=== PATIENT | female | born 1965 | race Caucasian/White ===

== ENCOUNTER 2023-03-28 10:17 | Outpatient (OUT) | payer OTHER, SELFPAY ==
--- NOTE | 2023-03-28 10:22 | MM_ITS ---
Patient: DAVIDE WICK Exam Date: 03/28/2023 : 1965 Gender:F Ordering : DR Mehrdad Hubbard . Admission #: [id number] Family : Order #: [id number] CLICK HERE TO VIEW EXAM RADIOLOGY REPORT PROCEDURE: MM TOMOSYNTHESIS SCREENING BI COMPARISON: MG MAMM RICHARD SCRN W CAD DIG, 02/17/2021. MG MAMM SCREEN 3D RICHARD CAD, 03/08/2022. INDICATIONS: Screening mammogram Z12.31 Calculator Name NCI Breast Cancer Risk Assessment Tool 5 Year Breast Cancer Risk 0.80% Lifetime Breast Cancer Risk 6.00% Personal Breast Cancer No Personal Ovarian Cancer No Treatments None Family Cancers None LOCATION: [facility] BREAST COMPOSITION: Heterogeneously dense,which may obscure small masses. FINDINGS: DIAGNOSTIC CATEGORY 2--BENIGN FINDING. NO CHANGE FROM COMPARISON. Scattered benign-appearing calcifications are present. Scattered benign-appearing lymph nodes are present. RIGHT BREAST: No significant suspicious finding. Stable circumscribed nodule upper outer quadrant, anterior to mid breast. LEFT BREAST: No significant suspicious finding. RECOMMENDATIONS: ROUTINE MAMMOGRAM AND CLINICAL EVALUATION IN 12 MONTHS. PLEASE NOTE: A NORMAL MAMMOGRAM DOES NOT EXCLUDE THE POSSIBILITY OF BREAST CANCER. A CLINICALLY SUSPICIOUS PALPABLE LUMP SHOULD BE BIOPSIED. Dictated by: Justin Weinstein MD on 03/28/2023 at 13:14 Approved by: Justin Weinstein MD on 03/28/2023 at 13:15
== END 2023-03-28 10:18 | disposition home or self-care (01) ==
PROVIDERS: PCP Family Medicine; Visit Provider Family Medicine
DX: Z12.31 Encounter for screening mammogram for malignant neoplasm of breast (principal)
CPT/HCPCS: 77063; 77067

== ENCOUNTER 2023-03-31 12:31 | Outpatient (OUT) | payer OTHER, SELFPAY ==
[2023-03-31 12:57] LABS: Basophils Absolute Auto 0.1 10^3/uL (0.0-0.1); Basophils Percent Auto 0.9 % (0.2-2.0); Eosinophils Absolute Auto 0.2 10^3/uL (0.0-0.7); Eosinophils Percent Auto 2.9 % (0.9-7.0); Hematocrit 44.6 % (36.0-48.0); Hemoglobin 14.9 g/dL (12.0-16.0); Immature Granulocytes Abs Auto 0.02 10^3/uL (0.00-0.03); Immature Granulocytes Pct Auto 0.4 % (0.0-0.5); Lymphocytes Percent Auto 18.9 % (20.5-60.0); Mean Corpuscular HGB Conc 33.4 g/dL (29.9-35.2); Mean Corpuscular Hemoglobin 31.1 pg (26.7-34.0); Mean Corpuscular Volume 93.1 fL (81.0-99.0); Mean Platelet Volume 8.9 fL (9.5-13.5); Monocytes Absolute Auto 0.4 10^3/uL (0.3-0.8); Monocytes Percent Auto 7.1 % (1.7-12.0); Neutrophils Absolute Auto 3.8 10^3/uL (1.4-6.5); Neutrophils Percent Auto 69.8 % (43.0-75.0); Platelet Count 331 10^3/uL (150-450); Red Blood Count 4.79 10^6/uL (4.20-5.40); Red Cell Distribution Width 12.4 % (11.0-15.0); White Blood Count 5.5 10^3/uL (4.0-11.0)
[2023-03-31 13:29] LABS: Estimated Average Glucose 105 mg/dL; Glycohemoglobin A1C 5.3 % (4.5-6.2)
[2023-03-31 14:21] LABS: Alanine Aminotransferase 30 U/L (14-59); Albumin Globulin Ratio 1.1; Albumin Level 4.1 g/dL (3.4-5.0); Alkaline Phosphatase 108 U/L (46-116); Anion Gap 9.9; Aspartate Amino Transferase 19 U/L (15-37); BUN Creatinine Ratio 14.8; Bilirubin Total 0.4 mg/dL (0.2-1.0); Calcium 9.7 mg/dL (8.5-10.1); Carbon Dioxide 30.2 mmol/L (21.0-32.0); Chloride 105 mmol/L (98-107); Chol HDL Ratio 3.2; Cholesterol 199 mg/dL (<=200); Estimated GFR (African America >60 (>=60); Estimated GFR (Non-African Ame 53 (>=60); Free T3 3.17 pg/mL (2.18-3.98); Globulin 3.8 g/dL; Glucose 91 mg/dL (74-106); HDL Cholesterol 63 mg/dL (40-60); Potassium 4.1 mmol/L (3.5-5.1); Sodium 141 mmol/L (136-145); Thyroid Stimulating Hormone 1.264 uIU/mL (0.358-3.740); Total Protein 7.9 g/dL (6.4-8.2); Triglycerides 177 mg/dL (<=150); VLDL CHOLESTEROL 35.4 mg/dL
== END 2023-03-31 12:32 | disposition home or self-care (01) ==
LOC: LAB 12:35
PROVIDERS: PCP Family Medicine; Visit Provider Family Medicine
DX: Z00.00 Encounter for general adult medical examination without abnormal findings (principal); D64.9 Anemia, unspecified; R73.9 Hyperglycemia, unspecified
CPT/HCPCS: 36415; 80053; 80061; 83036; 83540; 84436; 84443; 84481; 85025

== ENCOUNTER 2023-04-13 09:50 | Outpatient (OUT) | payer OTHER, SELFPAY | END 2023-04-13 09:51 | disposition home or self-care (01) | LOC: SLEEP 09:50 | PROVIDERS: PCP Family Medicine; Visit Provider Family Medicine | DX: G47.33 Obstructive sleep apnea (adult) (pediatric) (principal) | CPT/HCPCS: 95806 ==

== ENCOUNTER 2023-05-11 23:47 | Outpatient (OUT) | payer OTHER, SELFPAY | END 2023-05-11 23:48 | disposition home or self-care (01) | LOC: SLEEP 23:48 | PROVIDERS: PCP Family Medicine; Visit Provider Family Medicine | DX: G47.33 Obstructive sleep apnea (adult) (pediatric) (principal) | CPT/HCPCS: 95811 ==

== ENCOUNTER 2023-05-30 13:17 | Outpatient (OUT) | payer OTHER, SELFPAY | END 2023-05-30 13:18 | disposition home or self-care (01) | LOC: PST 13:17 | PROVIDERS: PCP Family Medicine; Visit Provider Surgery | DX: Z01.818 Encounter for other preprocedural examination (principal); Z12.11 Encounter for screening for malignant neoplasm of colon ==

== ENCOUNTER 2023-06-08 09:03 | Day surgery (SDC) | payer OTHER, SELFPAY ==
--- NOTE | 2023-06-08 | OP_ITS ---
OPERATION DATE: ??06/08/2023 PREOPERATIVE DIAGNOSIS:? Colorectal screening. POSTOPERATIVE DIAGNOSIS:? 2 mm sessile polyp in the ascending colon. PROCEDURE:? Colonoscopy to cecum with cold forceps polypectomy x1. SURGEON:? Regulo Watson M.D. ANESTHESIA:? Monitored anesthesia care. ESTIMATED BLOOD LOSS:? Less than 1 mL. INDICATIONS AND CONSENT:? Patient is a 58-year-old female presents for colorectal screening.? Indications, risks, benefits, alternatives of proceeding with colonoscopy were explained extensively to the patient, including the risks of bleeding, colon perforation or anesthetic complications.? All of her questions were answered.? Informed consent was obtained. PROCEDURE:? Patient brought to the operating room, placed in the left lateral decubitus position.? Monitored anesthesia care was provided.? Rectal exam was performed which showed no masses or blood.? The scope was inserted into the anal canal.? Under direct visualization was advanced.? It was advanced to the cecum where cecal markings were clearly identified.? There was noted to be a good prep.? Upon withdrawal of the scope, mucosal surfaces were carefully examined.? There were no mass lesions or inflammatory changes.? In the ascending colon, there was a 2 mm sessile polyp that was removed with cold biopsy forceps with good hemostasis.? There were no other mass lesions or polyps.? No inflammatory changes or ulcerations.? No significant diverticulosis.? The scope was retroflexed in the anal canal.? There was no significant hemorrhoidal disease.? Scope was then withdrawn.? Patient tolerated procedure well, was sent to recovery room in good condition. f/u colonoscopy likely in 5 years, but will depend on pathology report. CC:? Ok Galeas
[2023-06-08 09:23] VITALS: BP 141/90; PULSE 72; RESP 16; TEMP 35.9; O2SAT 97; BMI 26.8
[2023-06-08] MEDS: LACTATED RINGER'S SOLUTION 1,000 ML 50 ML IV (09:31)
[2023-06-08 10:38] VITALS: BP 126/75; PULSE 75; RESP 16; TEMP 36; O2SAT 97
[2023-06-08 10:53] VITALS: BP 129/69; PULSE 64; RESP 15; O2SAT 96
[2023-06-08 11:08] VITALS: BP 141/83; PULSE 54; RESP 16; O2SAT 96
== END 2023-06-08 11:08 | disposition home or self-care (01) ==
PROVIDERS: PCP Family Medicine; Visit Provider Surgery
PROC: (CPT 45380; principal; 2023-06-08 07:55)
DX: Z12.11 Encounter for screening for malignant neoplasm of colon (principal); K63.5 Polyp of colon; E78.5 Hyperlipidemia, unspecified; Z90.710 Acquired absence of both cervix and uterus; Z79.899 Other long term (current) drug therapy; Z87.891 Personal history of nicotine dependence
CPT/HCPCS: 45380; 88305; J2704

== ENCOUNTER 2024-02-09 11:36 | Outpatient (OUT) | payer OTHER, SELFPAY ==
--- NOTE | 2024-02-09 11:51 | XR_ITS ---
[facility] [id number] Patient Name: DAVIDE WICK MRN: [id number] date: 1965 Sex: F Assigned Patient Location: LAB Current Patient Location: Accession/Order Number: [id number] Exam Date: 02/09/2024 12:00 Report Date: 02/11/2024 17:35 At the request of: MESERET HOLLIDAY Procedure: XR hand RICHARD min 3v EXAMINATION: XR hand RICHARD min 3v HISTORY: Arthralgia M25.50 COMPARISON: No relevant comparison available. FINDINGS: RIGHT FINDINGS: BONES: Normal. No significant arthropathy or acute abnormality. SOFT TISSUES: Negative. No visible soft tissue swelling. OTHER: Negative. LEFT FINDINGS: BONES: Normal. No significant arthropathy or acute abnormality. SOFT TISSUES: Negative. No visible soft tissue swelling. OTHER: Negative. XR/XR hand RICHARD min 3v IMPRESSION: RIGHT CONCLUSION: Normal LEFT CONCLUSION: Normal Electronically authenticated by: TAMMY CORBETT Date: 02/11/2024 17:35
--- NOTE | 2024-02-09 11:52 | XR_ITS ---
[facility] [id number] Patient Name: DAVIDE WICK MRN: [id number] date: 1965 Sex: F Assigned Patient Location: LAB Current Patient Location: LAB Accession/Order Number: [id number] Exam Date: 02/09/2024 12:00 Report Date: 02/12/2024 04:52 At the request of: MESERET HOLLIDAY Procedure: XR cervical spine 5V EXAMINATION: XR cervical spine 5V HISTORY: Arthralgia M25.50 ; bilateral hand pain and numbness COMPARISON: No relevant comparison available. FINDINGS: BONES: Reversal normal lordotic curvature. No fracture, spondylolisthesis, bone lesion. No significant facet arthropathy. DISC SPACES: Moderate narrowing C3-C4, C5-C6, C6-C7. Mild narrowing C4-C5. Posterior disc osteophyte complexes suspected to cause mild central canal and foramen narrowing at multiple levels. PARASPINOUS: Negative. No paraspinous abnormality is seen. OTHER: Negative. XR/XR cervical spine 5V IMPRESSION: 1. Multilevel degenerative changes of the cervical spine. MRI recommended for further evaluation. Electronically authenticated by: EVANGELISTA MEDRANO Date: 02/12/2024 04:52
[2024-02-09 12:00] LABS: Basophils Percent Auto 0.6 % (0.2-2.0); Eosinophils Absolute Auto 0.2 10^3/uL (0.0-0.7); Eosinophils Percent Auto 3.6 % (0.9-7.0); Hematocrit 40.5 % (36.0-48.0); Hemoglobin 13.5 g/dL (12.0-16.0); Immature Granulocytes Abs Auto 0.02 10^3/uL (0.00-0.03); Immature Granulocytes Pct Auto 0.3 % (0.0-0.5); Lymphocytes Absolute Auto 1.2 10^3/uL (1.2-3.8); Lymphocytes Percent Auto 18.6 % (20.5-60.0); Mean Corpuscular HGB Conc 33.3 g/dL (29.9-35.2); Mean Corpuscular Hemoglobin 31.2 pg (26.7-34.0); Mean Corpuscular Volume 93.5 fL (81.0-99.0); Mean Platelet Volume 8.9 fL (9.5-13.5); Monocytes Absolute Auto 0.6 10^3/uL (0.3-0.8); Monocytes Percent Auto 8.8 % (1.7-12.0); Neutrophils Absolute Auto 4.4 10^3/uL (1.4-6.5); Neutrophils Percent Auto 68.1 % (43.0-75.0); Platelet Count 326 10^3/uL (150-450); Red Blood Count 4.33 10^6/uL (4.20-5.40); Red Cell Distribution Width 12.5 % (11.0-15.0); White Blood Count 6.4 10^3/uL (4.0-11.0)
[2024-02-09 12:05] LABS: Erythrocyte Sedimentation Rate 7 mm/hr (<=30)
[2024-02-09 12:20] LABS: C Reactive Protein <0.50 mg/dL (<=0.50); Uric Acid 4.2 mg/dL (2.6-6.0)
[2024-02-10 06:09] LABS: Antistreptolysin O Ab 127.9 IU/mL (0.0-200.0); Rheumatoid Factor (RF) 19.1 IU/mL (<14.0)
[2024-02-13 09:11] LABS: Antinuclear Antibodies, IFA Negative (.)
== END 2024-02-09 11:37 | disposition home or self-care (01) ==
LOC: LAB 11:37
PROVIDERS: PCP Family Medicine; Visit Provider Family Medicine
DX: M25.50 Pain in unspecified joint (principal); M50.30 Other cervical disc degeneration, unspecified cervical region
CPT/HCPCS: 36415; 72050; 73130; 84550; 85025; 85652; 86038; 86060; 86140; 86431

== ENCOUNTER 2024-06-29 10:44 | Outpatient (OUT) | payer OTHER, SELFPAY ==
--- NOTE | 2024-06-29 10:46 | MM_ITS ---
Patient Name: DAVIDE WICK MR#: [id number] : 1965 Exam Date: 06/29/2024 Ordering Doctor: DR Mehrdad Hubbard . RADIOLOGY REPORT PROCEDURE: MM TOMOSYNTHESIS SCREENING BI COMPARISON: MM TOMOSYNTHESIS SCREENING BI, 03/28/2023. MG MAMM SCREEN 3D RICHARD CAD, 03/08/2022. MG MAMM RICHARD SCRN W CAD DIG, 02/17/2021. MG MAMM RICHARD SCRN W CAD DIG, 04/03/2020. INDICATIONS: Screening Calculator Name NCI Breast Cancer Risk Assessment Tool 5 Year Breast Cancer Risk 0.90% Lifetime Breast Cancer Risk 5.70% Personal Breast Cancer No Personal Ovarian Cancer No Treatments None Family Cancers None LOCATION: [facility] BREAST COMPOSITION: The breasts are heterogeneously dense,which may obscure small masses. FINDINGS: DIAGNOSTIC CATEGORY 2--BENIGN FINDING: RIGHT BREAST: No significant suspicious finding. Scattered benign-appearing calcifications are present. Stable, chronic, subareolar cyst versus well-circumscribed mass. No significant change has occurred. LEFT BREAST: No significant suspicious finding. Scattered benign-appearing calcifications are present. No significant change has occurred. RECOMMENDATIONS: ROUTINE MAMMOGRAM AND CLINICAL EVALUATION IN 12 MONTHS. PLEASE NOTE: A NORMAL MAMMOGRAM DOES NOT EXCLUDE THE POSSIBILITY OF BREAST CANCER. A CLINICALLY SUSPICIOUS PALPABLE LUMP SHOULD BE BIOPSIED. Dictated by: Inocente Bear M.D. on 06/29/2024 at 16:08 Approved by: Inocente Bear M.D. on 06/29/2024 at 16:10
== END 2024-06-29 10:45 | disposition home or self-care (01) ==
LOC: MAMMO 10:44
PROVIDERS: PCP Family Medicine; Visit Provider Family Medicine
DX: Z12.31 Encounter for screening mammogram for malignant neoplasm of breast (principal)
CPT/HCPCS: 77063; 77067

== ENCOUNTER 2025-03-25 09:38 | Outpatient (OUT) | payer OTHER, SELFPAY ==
--- OUTSIDE RECORDS SUMMARY | 2025-02-14 09:17 | XMS_ITS ---
Author Organization [facility] in [place] Address [address] [place] [address] Care Team Providers Care Pt Sitter Name Role Phone Christopher Hubbard Primary Care Provider REASON FOR VISIT refill Encounters Encounter Location Date Provider Diagnosis [facility] [address] [facility] [place] [address] 02/14/2025 Christopher Hubbard Plan Of Treatment No Information Progress Notes * Kylah KAMINSKI LDOB:1965 (59 yo F)Acc No.[id number]:02/14/2025 Patient: Todd ULPEMARGA Kylah aRe :1965 A ge:59 Y S ex:Female Address:[address] [place], [address] * true * Date: Generated for Printi ng/Faxing/eTransmitting on: 0 03/25/2025 09:41 AM EDT
--- OUTSIDE RECORDS SUMMARY | 2025-02-18 06:36 | XMS_ITS ---
Author Organization [facility] in [place] Address [address] [place] [address] Care Team Providers Care Fruit Harvest Worker Name Role Phone Christopher Hubbard Primary Care Provider REASON FOR VISIT Semaglutide Encounters Encounter Location Date Provider Diagnosis [facility] [address] [place] [address] 02/18/2025 Christopher Hubbard Plan Of Treatment No Information Progress Notes * Kylah KAMINSKI LDOB:1965 (59 yo F)Acc No.[id number]:02/18/2025 Patient: Todd LUPEMARGA Kylah Rae :1965 A ge:59 Y S ex:Female Address:[address] [place] [place], [address] * true * Date: Generated for Printi ng/Faxing/eTransmitting on: 0 03/25/2025 09:42 AM EDT
--- OUTSIDE RECORDS SUMMARY | 2025-03-25 09:42 | XMS_ITS | Clinical Summary ---
Author Organization [employer] [facility] Address [id number] [address] [place] [address] Care Team Providers Care Car Parker Name Role Phone Mehrdad Hubbard MD Primary Care Provider [phone] Allergies No known active allergies Medications ibuprofen (ADVIL,MOTRIN) 800 mg tablet Take 800 mg by mouth every 6 (six) hours as needed for pain. Active GLUTAMINE ORAL Take by mouth. Active acidophilus-pect in, citrus 25 million cell -100 mg tablet Take by mouth 3 (three) times a day with meals. Active Family History * Patient is adopted Medical History Relation Name Comments Cancer Mother lung cancer Breast cancer Neg Hx Relation Name Status Comments Mother Social History Tobacco Use Types Packs/Day Years Used Date Smoking Tobacco: Former Smokeless Tobacco: Never Alcohol Use Standard Drinks/Week Comments Yes 0 (1 standard drink = 0.6 oz pur e alcohol) socially Childcare Answer Date Recorded Childcare Unknown 03/05/2019 Employment Answer Date Recorded Employment Unknown 03/05/2019 Purpose - Life Answer Date Recorded Purpose and direction in life Unknown Comments No Sex and Gender Information Value Date Recorded Sex Assigned at Female 01/19/2022 9:33 AM EDT Legal Sex Female 11:40 AM EDT Gender Identity Female 01/19/2022 9:33 AM EDT Sexual Orientation Straight 01/19/2022 9: 33 AM EDT Last Filed Vital Signs Vital Sign Reading Time Taken Comments Blood Pressure 124/80 04/03/2020 9:19 AM EDT Pulse 70 04/03/2020 9:19 AM EDT Temperature - - Respiratory Rate 16 04/03/2020 9:19 AM EDT Oxygen Saturation - - Inhaled Oxygen Concentration - - Weight 68 kg (150 lb) 02/17/2021 11:34 AM EDT Height 162.6 cm (5' 4 ) 02/17/2021 11:34 AM EDT Body Mass Index 25.75 02/17/2021 11:34 AM EDT Plan of Treatment Health Maintenance Due Date Last Done Comments Depression Screening 1979 Tobacco Screening 1979 Adult BMI Screening 1985 DTaP,Tdap and Td Vaccines (1 - Tdap) 1986 Influenza Vaccine 06/03/2025 Zoster (Shingles) Vaccine Completed 03/09/2018, 04/2018 Pap Smear Discontinued 04/03/2020 Medical Devices Not on file Procedures Procedure Name Priority Date/Time Associated Diagnosis Comments PAP SMEAR Routine 04/03/2020 11:41 AM EDT Cervical smear, as part of routine gynecological examination from Last 3 Months or Most Recently Relevant to Health Maintenance Results * Pap Smear (04/03/2020 11:41 AM EDT) 04/03/2020 11:4 1 AM EDT 04/03/2020 12:51 PM EDT Narrative COPATH - 04/08/2020 12:38 PM EDT [facility] [address] [place] [address] Gynecologic Cytology Consultation Patient Name: DAVIDE KAMINSKI : 1965 (Age: 55) Gender: F Taken: 04/03/2020 Reported: 04/08/2020 Physician(s): Guevara Sung M.D. ([phone]) Copy To: Med. Rec. #: [id number] Acct: # [id number] Final Cytologic Interpretation ThinPrep Pap Test (Cervical): Satisfactory for evaluation. NEGATIVE FOR INTRAEPITHELIAL LESION OR MALIGNANCY. jgera/04/08/2020 Interpretation performed at [facility], [address] [place] [address], License number: [id number]. Electronically Signed Out By J.J. Wm, CT(ASCP) Date of Last Menstrual Period: (None Given) Other Clinical Conditions: Z01.419 Clarifier Operator Helper exam wo/abn findings Total Hysterectomy Source of Specimen ThinPrep Pap Test (Cervical) Thin Prep Pap (PAINTER AND PAPERHANGER APPRENTICE) Fee Code(s): G0145 The Pap test is a screening test with an inherent, but low, probability of error. The Pap test is primarily effective for the diagnosis and prevention of squamous cell carcinoma. Regular screening is critical for prevention. ThinPrep liquid-based slides, which meet the Vp & General Counsel criteria for automated screening, have been screened by the ThinPrep Imaging System (as of 06/19/07) along with an additional manual rescreening by a crop grain or livestock farm manager and, if indicated, by a pathologist. us Guevara Sung MD PATHOLOGY/CYTOLOGY ORDERABLES Final Result COPATH from Last 3 Months or Most Recently Relevant to Health Maintenance Insurance [employer] Care Teams Car Parker Relationship Specialty Start Date End Date Mehrdad Hubbard MD PCP - General Family Medicine 03/05/19
--- OUTSIDE RECORDS SUMMARY | 2025-03-25 09:42 | XMS_ITS | Patient Health Record ---
Author Organization [facility] in [place] Address [address] [place] [address] Care Team Providers Care Orchid Superintendent Name Role Phone Haydee Christopher Primary Care Provider [phone] Allergies No Known Allergies Results Component Value Reference Range Notes MM tomosynthesis screening B I Reviewed date:07/01/2024 11:09:48 AM Interpretation: Performing Lab: Notes/Report: Source Facility: [place] [address] Mammography Report Signed Patient: DAVIDE KAMINSKI MR#: [id number] : 1965 Acct:[id number] Age/Sex: 59 / F ADM Date: 06/29/24 Loc: MAMMO Attending Dr: Mehrdad Hubbard M.D. Ordering Physician: Mehrdad Hubbard M.D. Results: Date of Service: 06/29/24 Follow Up: Procedure(s): MM tomosynthesis screening BI Accession Number(s): [id number] cc: Mehrdad Hubbard M.D. Patient Name: DAVIDE KAMINSKI MR#: [id number] : 1965 Exam Date: 06/29/2024 Ordering Doctor: DR Mehrdad Hubbard . RADIOLOGY REPORT PROCEDURE: MM TOMOSYNTHESIS SCREENING BI COMPARISON: MM TOMOSYNTHESIS SCREENING BI, 03/28/2023. MG MAMM SCREEN 3D RICHARD CAD, 03/08/2022. MG MAMM RICHARD SCRN W CAD DIG, 02/17/2021. MG MAMM RICHARD SCRN W CAD DIG, 04/03/2020. INDICATIONS: Screening Calculator Name NCI Breast Cancer Risk Assessment Tool 5 Year Breast Cancer Risk 0.90% Lifetime Breast Cancer Risk 5.70% Personal Breast Cancer No Personal Ovarian Cancer No Treatments None Family Cancers None LOCATION: [facility] BREAST COMPOSITION: The breasts are heterogeneously dense,which may obscure small masses. FINDINGS: DIAGNOSTIC CATEGORY 2--BENIGN FINDING: RIGHT BREAST: No significant suspicious finding. Scattered benign-appearing calcifications are present. Stable, chronic, subareolar cyst versus well-circumscribed mass. No significant change has occurred. LEFT BREAST: No significant suspicious finding. Scattered benign-appearing calcifications are present. No significant change has occurred. RECOMMENDATIONS: ROUTINE MAMMOGRAM AND CLINICAL EVALUATION IN 12 MONTHS. PLEASE NOTE: A NORMAL MAMMOGRAM DOES NOT EXCLUDE THE POSSIBILITY OF BREAST CANCER. A CLINICALLY SUSPICIOUS PALPABLE LUMP SHOULD BE BIOPSIED. Dictated by: Inocente Bear M.D. on 06/29/2024 at 16:08 Approved by: Inocente Bear M.D. on 06/29/2024 at 16:10 Dictated By: Inocente Bear M.D. Signed By: 06/29/24 1611 DD/ 1610 TD/TT: Electronic Assembly: [place] [address] Mammography Report Signed Patient: DAVIDE KAMINSKI MR#: [id number] : 1965 Acct:[id number] Age/Sex: 59 / F ADM Date: 06/29/24 Loc: MAMMO Attending Dr: Mehrdad Hubbard M.D. Ordering Physician: Mehrdad Hubbard M.D. Results: Date of Service: Follow Up: Procedure(s): MM toni osynthesis screening BI Accession Number(s): [id number] cc: Mehrdad Hubbard M.D. Patient Name: DAVIDE KAMINSKI MR#: [id number] : 1965 Exam Date: 06/29/2024 Ordering Doctor: DR Mehrdad Hubbard . RADIOLOGY REPORT PROCEDURE: MM TOMOSY NTHESIS SCREENING BI COMPARISON: MM TOMOS YNTHESIS SCREENING BI, 03/28/2023. MG MAMM SCREEN 3D RICHARD CAD, 03/08/2022. MG MAMM RICHARD SCRN W CAD DIG, 02/17/2021. MG MAMM RICHARD SCRN W CAD DIG, 04/03/2020. INDICATIONS: Screening Calculator Name NCI Breast Cancer Risk Assessment Tool 5 Year Breast Cancer Risk 0.90% Lifetime Breast Canc er Risk 5.70% Personal Breast Cancer No Personal Ovarian Cancer No Treatments None Family Cancers None LOCATION: [facility] BREAST COMPOSITION: The breasts are heterogeneously dense,which may obscure small masses. FINDINGS: DIAGNOSTIC CATEGORY 2--BENIGN FINDING: RIGHT BREAST: No sig nificant suspicious finding. Scattered benign-appearing calcifications are p resent. Stable, chronic, subareolar cyst versus well-circumscribed m ass. No significant change has occurred. LEFT BREAST: No sign ificant suspicious finding. Scattered benign-appearing calcifications are p resent. No significant change has occurred. RECOMMENDATIONS: ROUTINE MAMMOGRAM AN D CLINICAL EVALUATION IN 12 MONTHS. PLEASE NOTE: A JUANCHO L MAMMOGRAM DOES NOT EXCLUDE THE POSSIBILITY OF BREAST CANCER. A CLINICALLY SUSPICIOUS PALPABLE LUMP SHOULD BE BIOPSIED. Dictated by: Inocente Bear M.D. on 06/29/2024 at 16:08 Approved by: Inocente Bear M.D. on 06/29/2024 at 16:10 Dictated By: Inocente eBar M.D. Signed By: 06/29/24 161 DD/ 09 TD/TT: Electronic Assembly: Reason For Referral No Information Medications Medication SIG (Take, Route, Frequency, Duration) Notes Start Date End Date Status Semaglutide 0.3 mg/0.25mL 0.3 mg/0.25 mL 0.25 mL Subcutaneous Once weekly for 30 day(s) 11/28/2024 Active Black Cohosh Menopause Complex - 700mg- 1 capsule Orally Daily Active Cetirizine HCl 10 MG 1 tablet Orally Once a day PRN Active IBU 800 MG 1 tablet with food o r milk as needed Orally QID for 30 days 03/29/2023 Active Simvastatin 20 mg TAKE 1 TABLET BY JESUS TH DAILY for 30 Active Social History Tobacco Use: Social History Observation Description Date Details (start date - stop date) Former Smoker 10/03/1976 - 10/03/2014 Tobacco Use/Smoking Question Answer Notes Patient is a former smoker When did you start smoking? 10/03/1976 When did you stop smoking? 10/03/2014 How long has it been since you last smoked? 5-10 years Alcohol Screen (Audit-C) Question Answer Notes Did you have a drink contain ing alcohol in the past year? Yes How often did you have 6 or more drinks on one occasion in the past year? Two to four times a month (2 points) How many drinks did you have on a typical day when you were drinking in the past year? 5 or 6 drinks (2 points) How often did you have a dri nk containing alcohol in the past year? Weekly (3 points) Points 7 Interpretation Positive AUDIT-C (Standard) Question Answer Notes Did you have a drink contain ing alcohol in the past year? Yes How often did you have six o r more drinks on one occasion in the past year? Never (0 point) How many drinks did you have on a typical day when you were drinking in the past year? 3 or 4 drinks (1 point) How often did you have a dri nk containing alcohol in the past year? 2 to 4 times a month (2 points) Points 3 Interpretation Positive Problems Problem Type SNOMED Code ICD Code Onset Dates Problem Status W/U Status Risk Notes Problem 59428701 Obstructive slee p apnea (adult) (pediatric) (G47.33) Active confirmed Problem Snoring (70769133) Snoring (R06.83) Active confirmed Problem 104480602 Other specified abnormal immunological findings in serum (R76.8) Active confirmed Problem Arthralgia (M25.50) Active confirmed Problem Well adult (252514726) Well adult (Z00.00) Active confirmed Vital Signs Blood pressure diastolic 80 mm Hg 11/28/2024 Height 63.5 in 11/28/2024 Blood pressure systolic 102 mm Hg 11/28/2024 Weight 170.8 lbs 11/28/2024 BMI 29.78 kg/m2 11/28/2024 Encounters Encounter Location Date Provider Diagnosis [facility] [address] [place] [address] 02/18/2025 [facility] [address] [place] [address] 07/01/2024 [facility] [address] [facility] [place] [address] 12/21/2024 Christopher Hubbard [facility] [address] [facility] [place] [address] 01/18/2025 Christopher Hubbard [facility] [address] [facility] [place] [address] 02/14/2025 Christopher Hubbard [facility] [address] [facility] [place] [address] 06/27/2024 Christopher Hubbard Well adult Z00.00 [facility] [address] [facility] [place] [address] 11/28/2024 Christopher Hubbard Acute bronchitis, unspecified organism J20.9 Assessments Encounter Date Diagnosis (ICD Code) Assessment Notes Treatment Notes Treatment Clinical Notes Section Notes 06/27/2024 Well adult (ICD-10 - Z00.00) 11/28/2024 Acute bronchitis, unspecified organism (ICD-10 - J20.9) Rest and drink more liquids, especially water. You may use a humidifier or vaporizer to help keep the drainage moist. Ufwm-amz-kdeijba Nasal Saline may help the stuffy and runny nose. Use Ibuprofen and or Tylenol as needed for fever, chills, body aches or pain. Children 5 years old should not be given bvzm-ncd-zugnekc cough and cold medications such as guaifenesin and dextromethorphan. If you're over age 5, you may try dkul-ssg-qeqiukq cold medications such as guaifenesin and dextromethorphan, or multi-symptom cold reliever such as Dayquil to help reduce the symptoms. Antibiotics have been prescribed. You should take these until completed and follow the directions. Antibiotics can sometimes cause upset stomach, and in rare cases, serious allergic reactions or serious gastrointestinal problems. If you start having severe abdominal pain, severe vomiting, or bloody diarrhea, you should be reevaluated by your physician or urgent care immediately. Follow up with your Primary Care Provider or return to clinic if symptoms do not improve within 3-5 days. If you develop severe symptoms such as shortness of breath, repeated vomiting, coughing up blood, or chest pain you should go to the emergency room or call 911 Plan Of Treatment Pending Test Test Name Order Date CMP (COMPLETE METABOLIC PANEL) 3 HEMOGLOBIN A1C (GLYCO) 03/31/2023 IRON, TOTAL 03/31/2023 LIPID PANEL (CHOL/TRIG/HDL/LDL) 03/31/20 23 CBC WITH DIFF 03/31/2023 RHEUMATOID PANEL 02/09/2024 Sleep study - Diagnostic Polysonogram SED RATE WESTERGREN 02/09/2024 XR CSPINE MIN 4 VIEWS 02/09/2024 XR HAND LT MIN 3V 02/09/2024 XR HAND RT MIN 3V 02/09/2024 THYROID PANEL (T4/TSH/FREE T3) 3 Insurance Providers Payer Name Payer Address Payer Phone Subscriber Number Group Number Insured Name Patient Relationship to Insured Coverage Start Date Coverage End Date [employer] [address] [address] [place] [address] [id number] Davide Kaminski Self - patient is the insured Medical (General) History Medical History History ICD Code Other general symptoms and signs R68.89 Arthralgia M25.50 Cervical lymphadenopathy R59.0 Acute labyrinthitis H83.09 Pyelonephritis N12 Surgical History Surgery Date(Month/Year) Partial Hysterectomy D&C Colonoscopy 06/08/2023 Tonsills & Adnoids
--- OUTSIDE RECORDS SUMMARY | 2025-03-25 09:42 | XMS_ITS | Encounter Summary ---
Author Organization [employer] [facility] Address [id number] [address] [place] [address] Care Team Providers Care Supervisor General Name Role Phone Mehrdad Hubbard MD Primary Care Provider [phone] Encounter Details Date Type Department Care Team (Late st Contact Info) Description 02/10/2021 Telephone [facility] [address] [place] [address] Laxmi Watson MA Social History Tobacco Use Types Packs/Day Years [...] Orientation Straight 01/19/2022 9: 33 AM EDT documented as of this encounter Miscellaneous Notes * Telephone Encounter - Laxmi Watson MA - 02/10/2021 4:06 PM EDT Can you please put mammogram order in system for patient. documented in this encounter Plan of Treatment Not on file documented as of this encounter Visit Diagnoses Not on filedocumented in this encounter Care Teams Supervisor General Relationship Specialty Start Date End Date Mehrdad Hubbard MD PCP - General Family Medicine 03/05/19 documented as of this encounter
--- OUTSIDE RECORDS SUMMARY | 2025-03-25 09:42 | XMS_ITS | Clinical Summary ---
Author Organization [facility] Healthcare Address [address] [place] [address] Care Team Providers Care Sheep Shearer Name Role Phone Mehrdad Hubbard MD Primary Care Provider [phone] Allergies No known active allergies Medications simvastatin (Zocor) 20 MG tablet Take 20 mg by mouth Daily 04/03/2024 Active ibuprofen 800 MG tablet Take 800 mg by mouth if needed for mild pain Active Active Problems Problem Noted Date Diagnosed Date LENA (obstructive sleep apnea) 04/28/2024 Hypersomnia 04/28/2024 Family History Relation Name Status Comments Father Unknown Mother Unknown Social History Tobacco Use Types Packs/Day Years Used Date Smoking Tobacco: Former Cigarettes 0 10/03/2013 - 10/03/1978 Smokeless Tobacco: Never Tobacco Cessation:Counseling Given: Not Answered Alcohol Use Standard Drinks/Week Comments Yes 1 (1 standard drink = 0.6 oz pur e alcohol) Comments Unknown Sex and Gender Information Value Date Recorded Sex Assigned at Not on file Legal Sex Female 9:36 PM EDT Gender Identity Not on file Sexual Orientation Not on file Last Filed Vital Signs Vital Sign Reading Time Taken Comments Blood Pressure 112/84 05/01/2024 9:55 AM EDT Pulse - - Temperature - - Respiratory Rate - - Oxygen Saturation - - Inhaled Oxygen Concentration - - Weight 75.8 kg (167 lb) 05/01/2024 9:55 AM EDT Height 162.6 cm (5' 4 ) 05/01/2024 9:55 AM EDT Body Mass Index 28.67 05/01/2024 9:55 AM EDT Plan of Treatment Health Maintenance Due Date Last Done Comments CT Colonography 1967 Colonoscopy 1967 Colorectal Cancer Screening 1967 FIT-DNA 1967 FIT 1967 FOBT 1967 Sigmoidoscopy 1967 Pap Smear 1988 Cervical Cancer Screening 1997 HPV/Cotest 1997 Mammogram 02/17/2022 02/17/2021, 07/0 11/2019, 03/29/2019 Influenza Vaccine (Season Ended) 2025 Insurance [employer] Care Teams Sheep Shearer Relationship Specialty Start Date End Date Mehrdad Hubbard MD PCP - General Family Medicine 05/01/24
--- OUTSIDE RECORDS SUMMARY | 2025-03-25 09:42 | XMS_ITS | Encounter Summary ---
Author Organization [facility] Address [id number] [address] [place] [address] Care Team Providers Care Blankbook Forwarder Name Role Phone Mehrdad Hubbard MD Primary Care Provider [phone] Encounter Details Date Type Department Care Team (Late st Contact Info) Description 02/10/2021 [facility] [address] [place] [address] Laxmi Watson MA Social History [...] Encounter - Laxmi Watson MA - 02/10/2021 4:09 PM EDT Patient wanted to be seen sooner for her annual than a year. Patient was just seen in April. I let patient know insurance's will usually deny if it hasn't been a year, patient stated she called insurance and they told her if would be fine. Advised to keep her appt in April and if any issues arise we will bring her in for appt . She denied any current issues at this time. documented in this encounter Plan of Treatment Not on file documented as of this encounter Visit Diagnoses Not on filedocumented in this encounter Care Teams Blankbook Forwarder Relationship Specialty Start Date End Date Mehrdad Hubbard MD PCP - General Family Medicine 03/05/19 documented as of this encounter
--- NOTE | 2025-03-25 09:49 | MM_ITS ---
Patient Name: DAVIDE WICK MR#: [id number] : 1965 Exam Date: 03/25/2025 Ordering Doctor: DR MESERET HOLLIDAY . RADIOLOGY REPORT PROCEDURE: MM TOMOSYNTHESIS SCREENING BI COMPARISON: MM TOMOSYNTHESIS SCREENING BI, 06/29/2024. MM TOMOSYNTHESIS SCREENING BI, 03/28/2023. MG MAMM SCREEN 3D RICHARD CAD, 03/08/2022. MG MAMM RICHADR SCRN W CAD DIG, 03/30/2012. INDICATIONS: Screening Calculator Name NCI Breast Cancer Risk Assessment Tool 5 Year Breast Cancer Risk 0.90% Lifetime Breast Cancer Risk 5.70% Personal Breast Cancer No Personal Ovarian Cancer No Treatments None Family Cancers None LOCATION: [facility] BREAST COMPOSITION: The breasts are heterogeneously dense,which may obscure small masses. FINDINGS: DIAGNOSTIC CATEGORY 1--NEGATIVE. RIGHT BREAST: No significant suspicious finding. LEFT BREAST: No significant suspicious finding. RECOMMENDATIONS: ROUTINE MAMMOGRAM AND CLINICAL EVALUATION IN 12 MONTHS. PLEASE NOTE: A NORMAL MAMMOGRAM DOES NOT EXCLUDE THE POSSIBILITY OF BREAST CANCER. A CLINICALLY SUSPICIOUS PALPABLE LUMP SHOULD BE BIOPSIED. Dictated by: Nabeel Salter DO on 03/25/2025 at 16:33 Approved by: Nabeel Salter DO on 03/25/2025 at 16:35
--- OUTSIDE RECORDS SUMMARY | 2025-03-25 10:01 | XMS_ITS | CCD ---
Author Organization [facility] Care Team Providers Care Build And Deployment Engineer Name Role Phone MIYA, DR CARL Consulting Unavailable MIYA, DR CARL Primary Care Unavailable MIYA, DR CARL Admitting Unavailable MIYA, DR CARL Attending Unavailable WEST, DR TAMMY Sloan Consulting Unavailable MIYA, DR CARL Consulting Unavailable MIAY, DR CARL Primary Care Unavailable MIYA, DR CARL Admitting Unavailable MIYA, DR CARL Attending Unavailable MIYA, DR CARL Consulting Unavailable MIYA, DR CARL Primary Care Unavailable MIYA, DR CARL Admitting Unavailable MIYA, DR CARL Attending Unavailable Meseret Hubbard Primary Care Physician Meseret Hubbard Referring Unavailable Regulo COELHO Attending Unavailable NILLRegulo Attending Unavailable NILRegulo Rae Attending Unavailable HANS TORREZ Attending Unavailable GENEVA SEALS Referring Unavailable Allergies Allergy Classification Reported Allergen(s) Allergy Type Date of Onset Reaction(s) Facility (1 source) No Known Medication Allergies; Translations: [No Known Medication Allergies] Propensity to adverse reactions (disorder) [facility] Repository Medications Current Medications Medication Drug Class(es) Dates Sig (Normalized) Sig (Original) Acidophilus Probiotic Blend (2 sources) Start: 05-17-2023 take 1 capsule by mouth once daily Acidophilus Probiotic Blend 1 cap(s), Oral, Daily, Refill(s) 0 Start Date: 05/17/23 Status: Ordered simvastatin 20 mg oral tablet (2 sources) HMG-CoA Reductase Inhibitor Start: 04-07-2023 take 1 tablet by mouth once daily in the evening simvastatin 20 mg Tab 20 mg = 1 tab(s), Oral, qPM, Refills(s) 0 Start Date: 04/07/23 Status: Ordered Problems Active Problems Problem Classification Problem Date Documented Da te Episodic/Chronic Disorders of lipid metabolism (6 sources) Hyperlipidemia, unspecified; Translations: [Hyperlipidemia] Onset: 05-19-2021 Chronic Other nutritional; endocrine; and metabolic disorders (2 sources) Overweight 04-07-2023 Episodic Other nutritional; endocrine; and metabolic disorders (2 sources) Overweight in adulthood with body mass index of 25 or more but less than 30 05-17-2023 Episodic Other screening for suspected conditions (not mental disorders or infectious disease) (3 sources) Encounter for screening mammogram for malignant neoplasm of breast; Translations: [Screening for malignant neoplasm of colon done] Onset: 03-12-2022 Episodic Unclassified (3 sources) CONTACT W/AND (SUSP) EXPOS COVID-19; Translations: [CONTACT W/AND (SUSP) EXPOS COVID-19] Onset: 06-07-2021 Unclassified (2 sources) Patient encounter status 05-17-2023 Past or Other Problems Problem Classification Problem Date Documented Da te Episodic/Chronic Unclassified (1 source) CONTACT W/AND (SUSP) EXPOS COVID-19; Translations: [CONTACT W/AND (SUSP) EXPOS COVID-19] Onset: 05-27-2021 Results Test Name Value Interpretation Reference Range Facility Ambulatory Visit Summaryon 0 06-21-2023 Ambulatory Visit Summary DAVIDE WICK :1965 Visit Date:06/21/2023 Ambulatory Visit Instructions Your Diagnosis Screening for malignant neoplasm of colon Your Care Team Attending Physician - LAQUITA MILLER, Regulo Moreland Primary Care Physician - Meseret Hubbard MD This Is Your Medications List lactobacillus acidophilus (Acidophilus Probiotic Blend) simvastatin (simvastatin 20 mg Tab) Procedures Performed Colonoscopy (06/08/2023), Dilation and curettage, Repair of right inguinal hernia, Tonsillectomy and adenoidectomy, Vaginal hysterectomy. Medications What How Much When Instructions Unchanged lactobacillus acidophilus (Acidophilus Probiotic Blend) 1 Capsules By Mouth Every day Unchanged simvastatin (simvastatin 20 mg Tab) 1 Tablets By Mouth Once a day (in the evening) Allergies No Known Allergies No Known Medication Allergies Problems Ongoing - Any problem that you are currently receiving treatment for. BMI 27.0-27.9,adult Hyperlipidemia Overweight Screening for malignant neoplasm of colon Amol Allred [facility] General Surgery Office/Clini c Noteon 06-21-2023 General Surgery Office/Clinic Note Chief Complaint colonoscopy follow up HPI Staff 13 day post operative follow up post colonoscopy with ascending colon polypectomy. History of Present Illness s/p colonoscopy with removal of 2 mm ascending colon polyp; pathology just with lymphoid tissue, no polyp; doing well, denies pain or blood in stools. Review of Systems ROS - Provider Constitutional: no fever, no sweats, no weight loss. Eyes: no glasses, no blurred vision, no visual loss. ENMT: no dentures, no hoarseness, no swallowing difficulties, no hearing loss, no ear infection(s), no nose bleeds. Cardiovascular: normal blood pressure, no chest pain, regular heartbeat, no heart murmur. Respiratory: no shortness of breath, no cough, no asthma, no wheezing. Gastrointestinal: no nausea, no vomiting, no diarrhea, no constipation, no blood in stool, no change in bowel habits, no abdominal pain, no hepatitis. Genitourinary: no kidney stones, no urine infection, no dysuria. Musculoskeletal: no pain, no weakness. Skin: no changing moles, no rash, no skin lumps. Neurologic: no seizures, no epilepsy, no headache. Psychiatric: no emotional or psychiatric problem. Heme/Lymph: no bleeding problems, no anemia, no blood clots, no transfusions. Allergy/Immunologic: no swollen lymph nodes/glands, no IV drug abuse. Other: Additional ROS info: Except as noted in the above Review of Systems and in the History of Present Illness, all other systems have been reviewed and are negative or noncontributory. Assessment/Plan 1. Screening for malignant neoplasm of colon (Z12.11: Encounter for screening for malignant neoplasm of colon) small 2 mm polypoid area removed, not true polyp, only lymphoid tissue; f/u screening colonoscopy in 10 years, call sooner if problems/questions. Follow-up No qualifying data available Problem List/Past Medical History Ongoing BMI 27.0-27.9,adult Hyperlipidemia Overweight Screening for malignant neoplasm of colon Historical No qualifying data Procedure/Surgical History Colonoscopy (06/08/2023), Dilation and curettage, Repair of right inguinal hernia, Tonsillectomy and adenoidectomy, Vaginal hysterectomy. Medications Acidophilus Probiotic Blend, 1 cap(s), Oral, Daily simvastatin 20 mg Tab, 20 mg= 1 tab(s), Oral, qPM Allergies No Known Allergies No Known Medication Allergies Social History Alcohol Current, Beer, 1-2 times per week, 05/17/2023 Substance Abuse - Denies Substance Abuse, 05/17/2023 Tobacco Former smoker, quit more than 30 days ago Tobacco Use:. Never Smokeless Tobacco Use:. Cigarettes, 0.25 per day. Started age 22.0 Years. Stopped age 48 Years., 05/17/2023 Family History Primary malignant neoplasm of lung: Mother. Immunizations Vaccine Date Status SARSCoV2 mRNA(tosandyer-jessika- sucros) vac 11/13/2021 Recorded SARS-CoV-2 (COVID-19) mRNA BNT-162b2 vax 05/29/2021 Recorded SARS-CoV-2 (COVID-19) mRNA BNT-162b2 vax 05/12/2021 Recorded Normal [facility] Comment on above: Result Comment: Elec tronically Signed By: LAQUITA MILLER, Regulo Devries\Date and Time Signed: 06/21/23 13:12 EDT Reminderson 06-21-2023 Reminders - From: Rebekah Sandoval LPN To: GSN - Clinical; Sent: 06/21/2023 13:06:19 EDT Show up: 05/08/2033 07:00:00 EDT Subject: colonoscopy recall Due Date/Time: 06/08/2033 07:00:00 EDT Reminder/Recall Patient due for screening colonoscopy 06/08/2033. Normal [facility] Pathology Noteon 06-13-2023 Pathology Note [id number]# 1.00CD:127 Normal [facility] Outside Colonoscopyon 2022 Outside Colonoscopy [id number]# 1.00CD:127 [facility] Insurance Correspondenceon 0 05-30-2023 Insurance Correspondence [id number] 2#1.00CD:127 [facility] Consent for Procedure/Surger yon 05-18-2023 Consent for Procedure/Surgery [id number] #1.00CD:127 [facility] Ambulatory Visit Summaryon 0 05-17-2023 Ambulatory Visit Summary DAVIDE WICK :1965 Visit Date:05/17/2023 Ambulatory Visit Instructions Your Diagnosis Screening for malignant neoplasm of colon Your Care Team Attending Physician - LAQUITA MILLER, Regulo Moreland Primary Care Physician - Meseret Hubbard MD This Is Your Medications List Contact prescribing physician if questions or concerns lactobacillus acidophilus (Acidophilus Probiotic Blend) simvastatin (simvastatin 20 mg Tab) Procedures Performed Dilation and curettage, Repair of right inguinal hernia, Tonsillectomy and adenoidectomy, Vaginal hysterectomy. Discharge Vitals Heart Rate (Peripheral) 72 Respiratory Rate 16 Blood Pressure 126/86 Height 162.5 cm Height 64 in Weight 73.5 kg Weight 161.7 lb BMI 27.83 Medications What How Much When Instructions Unchanged lactobacillus acidophilus (Acidophilus Probiotic Blend) 1 Capsules By Mouth Every day Contact prescribing physician if questions or concerns Unchanged simvastatin (simvastatin 20 mg Tab) 1 Tablets By Mouth Once a day (in the evening) Contact prescribing physician if questions or concerns Allergies No Known Allergies No Known Medication Allergies Problems Ongoing - Any problem that you are currently receiving treatment for. BMI 27.0-27.9,adult Hyperlipidemia Overweight Screening for malignant neoplasm of colon [facility] Ambulatory Visit Summary DAVIDE WICK :1965 Visit Date:05/17/2023 Ambulatory Visit Instructions Your Diagnosis Screening for malignant neoplasm of colon Your Care Team Attending Physician - LAQUITA MILLER, Regulo Moreland Primary Care Physician - Meseret Hubbard MD This Is Your Medications List lactobacillus acidophilus (Acidophilus Probiotic Blend) simvastatin (simvastatin 20 mg Tab) Procedures Performed Dilation and curettage, Repair of right inguinal hernia, Tonsillectomy and adenoidectomy, Vaginal hysterectomy. Discharge Vitals Heart Rate (Peripheral) 72 Respiratory Rate 16 Blood Pressure 126/86 Height 162.5 cm Height 64 in Weight 73.5 kg Weight 161.7 lb BMI 27.83 Medications What How Much When Instructions Unchanged lactobacillus acidophilus (Acidophilus Probiotic Blend) 1 Capsules By Mouth Every day Unchanged simvastatin (simvastatin 20 mg Tab) 1 Tablets By Mouth Once a day (in the evening) Allergies No Known Allergies No Known Medication Allergies Problems Ongoing - Any problem that you are currently receiving treatment for. BMI 27.0-27.9,adult Hyperlipidemia Overweight Screening for malignant neoplasm of colon Normal [facility] Facesheeton 05-17-2023 Facesheet [id number]#1.00CD:127 Normal [facility] Physician Referralon 023 Physician Referral [id number] #1.00CD:127 Normal [facility] Physician Referralon 023 Physician Referral [id number] #1.00CD:127 Normal [facility] T4 LABCORPon 03-09-2022 T4 [Mass/Vol] 5.7 ug/dL Normal 4.5-12.0 [facility] Comment on above: Performed By: #### T 4LC #### [facility] [address] [place] [address] Dr. Montserrat Payne CBC AUTO DIFFon 03-08-2022 BASO # 0.0 103/ul Normal 0.0-0.1 [facility] Comment on above: Performed By: #### C BC #### [facility] [address] [place] [address] Dr. Montserrat Payne Basophils/100 WBC (Bld) 0.6 % Normal 0.2-2.0 [facility] Comment on above: Performed By: #### C BC #### [facility] [address] [place] [address] Dr. Montserrat Payne EO # 0.2 103/ul Normal 0.0-0.7 [facility] Comment on above: Performed By: #### C BC #### [facility] [address] [place] [address] Dr. Montserrat Payne Eosinophils/100 WBC (Bld) 4.6 % Normal 0.9-7.0 [facility] Comment on above: Performed By: #### C BC #### [facility] [address] [place] [address] Dr. Montserrat Payne Erythrocyte distribution width (RBC) [Ratio] 12.4 % Normal 11.0-15.0 [facility] Comment on above: Performed By: #### C BC #### [facility] [address] [place] [address] Dr. Montserrat Payne Hematocrit (Bld) [Volume fraction] 41.0 % Normal 36.0-48.0 [facility] Comment on above: Performed By: #### C BC #### [facility] [address] [place] [address] Dr. Montserrat Payne Hemoglobin (Bld) [Mass/Vol] 13.8 g/dL Normal 12.0-16.0 [facility] Comment on above: Performed By: #### C BC #### [facility] [address] [place] [address] Dr. Montserrat Payne IG # 0.02 10e3/ul Normal 0.00-0.03 [facility] Comment on above: Performed By: #### C BC #### [facility] [address] [place] [address] Dr. Montserrat Payne IG % 0.4 % Normal 0.0-0.5 [facility] Comment on above: Performed By: #### C BC #### [facility] [address] [place] [address] Dr. Montserrat Payne LYMPH # 1.2 103/ul Normal 1.2-3.8 [facility] Comment on above: Performed By: #### C BC #### [facility] [address] [place] [address] Dr. Montserrat Payne Lymphocytes/100 WBC (Bld) 23.4 % Normal 20.5-60.0 [facility] Comment on above: Performed By: #### C BC #### [facility] [address] [place] [address] Dr. Montserrat Payne MANUAL DIFF REQ NO Normal [facility] Comment on above: Performed By: #### C BC #### [facility] [address] [place] [address] Dr. Montserrat Payne MCH (RBC) [Entitic mass] 31.8 pg Normal 26.7-34.0 [facility] Comment on above: Performed By: #### C BC #### [facility] [address] [place] [address] Dr. Montserrat Payne MCHC (RBC) [Mass/Vol] 33.7 g/dL Normal 29.9-35.2 [facility] Comment on above: Performed By: #### C BC #### [facility] [address] [place] [address] Dr. Montserrat Payne MCV (RBC) [Entitic vol] 94.5 fL Normal 81.0-99.0 [facility] Comment on above: Performed By: #### C BC #### [facility] [address] [place] [address] Dr. Montserrat Payne MONO # 0.5 103/ul Normal 0.3-0.8 [facility] Comment on above: Performed By: #### C BC #### [facility] [address] [place] [address] Dr. Montserrat Payne Monocytes/100 WBC (Bld) 9.4 % Normal 1.7-12.0 [facility] Comment on above: Performed By: #### C BC #### [facility] [address] [place] [address] Dr. Montserrat Payne NEUT # 3.1 103/ul Normal 1.4-6.5 [facility] Comment on above: Performed By: #### C BC #### [facility] [address] [place] [address] Dr. Montserrat Payne Neutrophils/100 WBC (Bld) 61.6 % Normal 43.0-75.0 [facility] Comment on above: Performed By: #### C BC #### [facility] [address] [place] [address] Dr. Montserrat Payne Platelet mean volume (Bld) [Entitic vol] 8.9 fL Critically low 9.5-13.5 [facility] Comment on above: Performed By: #### C BC #### [facility] [address] [place] [address] Dr. Montserrat Payne PLT 284 103/ul Normal 150-450 [facility] Comment on above: Performed By: #### C BC #### [facility] [address] [address] [address] Montserrat Payne RBC 4.34 106/ul Normal 4.20-5.40 [facility] Comment on above: Performed By: #### C BC #### [facility] [address] [address] [address] Montserrat Payne WBC 5.0 103/ul Normal 4.0-11.0 [facility] Comment on above: Performed By: #### C BC #### [facility] [address] [address] [address] Montserrat Payne FREE THYROXINE INDEX T7on FTI 1.94 Normal 1.30-4.50 [facility] Comment on above: Performed By: #### T 7, CMP, LIPID, TSH ####[facility] [id number] [address]Dr. Montserrat Payne T3U 34.0 % Normal 30.0-39.0 [facility] Comment on above: Performed By: #### T 7, CMP, LIPID, TSH ####[facility] [id number] [id number]. Montserrat Payne T4 [Mass/Vol] 5.70 ug/dL Normal 4.80-13.90 [facility] Comment on above: Result Comment: T4 t esting performed by [facility] Performed By: #### T 7, CMP, LIPID, TSH ####[facility] [id number] [place] [id number]. Montserrat Payne GLYCOHEMOGLOBIN A1Con 2021 ADA RECOMMENDATION SEE BELOW Normal [facility] Comment on above: Result Comment: ADA RECOMMENDED LIMIT 4.0 - 6.0 ADA THERAPEUTIC TARGET < 7.0 ACTION SUGGESTED > 7.0 Performed By: #### A 1C #### [facility] [address] [address] [address] Montserrat Payne Glucose [Mass/Vol] 97 mg/dL Normal [facility] Comment on above: Performed By: #### A 1C #### [facility] [address] [place], [place] [address] Dr. Montserrat Payne HbA1c (Bld) [Mass fraction] 5.0 % Normal 4.5-6.2 [facility] Comment on above: Performed By: #### A 1C #### [facility] [address] [place], [place] [address] Dr. Montserrat Payne IRONon 03-08-2022 Iron [Mass/Vol] 96.0 ug/dL Normal 50.0-170.0 [facility] Comment on above: Performed By: #### I DEWAYNE #### [facility] [address] [address] [address] Montserrat Payne LIPID PROFILEon 03-08-2022 CHOL-HDL RATIO NORM SEE BELOW Normal [facility] Comment on above: Result Comment: 3.3 - 4.4 LOW RISK 4.4 - 7.1 AVERAGE RISK 7.1 - 11.0 MODERATE RISK >11.0 HIGH RISK Performed By: #### T 7, CMP, LIPID, TSH ####[facility] [id number] [place] [id number]. Montserrat Payne Cholesterol [Mass/Vol] 212 mg/dL Critically high <=200 [facility] Comment on above: Performed By: #### T 7, CMP, LIPID, TSH ####[facility] [id number] [id number]. Montserrat Payne Cholesterol in HDL [Mass/Vol] 61 mg/dL Critically high 40-60 [facility] Comment on above: Performed By: #### T 7, CMP, LIPID, TSH ####[facility] [id number] [place] [phone]. Montserrat Payne Cholesterol in LDL [Mass/Vol] 113.6 mg/dL Normal [facility] Comment on above: Performed By: #### T 7, CMP, LIPID, TSH ####[facility] [id number] [place] [phone]. Montserrat Payne Cholesterol.total/Chol esterol in HDL [Mass ratio] 3.5 {ratio} Normal [facility] Comment on above: Performed By: #### T 7, CMP, LIPID, TSH ####[facility] [id number] [place] [phone]. Montserrat Payne HDL NORMAL > or = 60 mg/dl - LOW CARDIOVASCULAR RISK <40 mg/dl - HIGH CARDIOVASCULAR RISK Normal [facility] Comment on above: Performed By: #### T 7, CMP, LIPID, TSH ####[facility] [id number] [address]Dr. Montserrat Payne LDL CALC NORMAL SEE BELOW Normal [facility] Comment on above: Result Comment: <100 mg/dl OPTIMAL 100 - 129 mg/dl NEAR OR ABOVE OPTIMAL 130 - 159 mg/dl BORDERLINE HIGH 160 - 189 mg/dl HIGH >190 mg/dl VERY HIGH Performed By: #### T 7, CMP, LIPID, TSH ####[facility] [id number] [address]Dr. Montserrat Payne Triglyceride [Mass/Vol] 187 mg/dL Critically high <=150 [facility] Comment on above: Performed By: #### T 7, CMP, LIPID, TSH ####[facility] [id number] [phone]. Montserrat Payne VLDL CALC 37.4 mg/dL Normal [facility] Comment on above: Performed By: #### T 7, CMP, LIPID, TSH ####[facility] [id number] [address]Dr. Montserrat Payne MG MAMM SCREEN 3D RICHARD CADon 03-08-2022 MG MAMM SCREEN 3D RICHARD CAD Patient: DAVIDE WICK Exam Date: 03/08/2022 : 1965 Gender:F Ordering : DR MESERET HUBBARD . Admission #: [id number] Family : Order #: [id number] CLICK HERE TO VIEW EXAM RADIOLOGY REPORT PROCEDURE: MAMMOGRAM SCREENING 3D BILATERAL CAD COMPARISON: MG MAMM RICHARD SCRN W CAD DIG, 04/03/2020. MG MAMM RICHARD SCRN W CAD DIG, 02/17/2021. INDICATIONS: Screening mammography Calculator Name NCI Breast Cancer Risk Assessment Tool 5 Year Breast Cancer Risk 0.80% Lifetime Breast Cancer Risk 6.10% Personal Breast Cancer No Personal Ovarian Cancer No Treatments None Family Cancers None LOCATION: [facility] BREAST COMPOSITION: Heterogeneously dense,which may obscure small masses. FINDINGS: DIAGNOSTIC CATEGORY 2--BENIGN FINDING. NO CHANGE FROM COMPARISON. Scattered benign-appearing calcifications are present. Scattered benign-appearing lymph nodes are present. RIGHT BREAST: No significant suspicious finding. Stable retroareolar nodule, anterior/mid breast LEFT BREAST: No significant suspicious finding. RECOMMENDATIONS: ROUTINE MAMMOGRAM AND CLINICAL EVALUATION IN 12 MONTHS. PLEASE NOTE: A NORMAL MAMMOGRAM DOES NOT EXCLUDE THE POSSIBILITY OF BREAST CANCER. A CLINICALLY SUSPICIOUS PALPABLE LUMP SHOULD BE BIOPSIED. Dictated by: Tammy Weinstein MD on 03/08/2022 at 10:53 Approved by: Tammy Weinstein MD on 03/08/2022 at 10:54 Normal [facility] PROF 14(COMP METB)on 022 Albumin [Mass/Vol] 3.7 g/dL Normal 3.4-5.0 [facility] Comment on above: Performed By: #### T 7, CMP, LIPID, TSH #### [facility] [address] [place] [address] Dr. Montserrat Payne Albumin/Globulin [Mass ratio] 1.2 {ratio} Normal [facility] Comment on above: Performed By: #### T 7, CMP, LIPID, TSH #### [facility] [address] [place] [address] Dr. Montserrat Payne ALP [Catalytic activity/Vol] 85 U/L Normal 46-116 [facility] Comment on above: Performed By: #### T 7, CMP, LIPID, TSH #### [facility] [address] [address] [address] Montserrat Payne ALT [Catalytic activity/Vol] 29 U/L Normal 14-59 [facility] Comment on above: Performed By: #### T 7, CMP, LIPID, TSH #### [facility] [address] [place] [address] Dr. Montserrat Payne Anion gap [Moles/Vol] 13.3 mmol/L Normal [facility] Comment on above: Performed By: #### T 7, CMP, LIPID, TSH #### [facility] [address] [place] [address] Dr. Montserrat Payne AST [Catalytic activity/Vol] 20 U/L Normal 15-37 [facility] Comment on above: Performed By: #### T 7, CMP, LIPID, TSH #### [facility] [address] [address] [address] Montserrat Payne Bilirubin [Mass/Vol] 0.3 mg/dL Normal 0.2-1.0 [facility] Comment on above: Performed By: #### T 7, CMP, LIPID, TSH #### [facility] [address] [address] [address] Montserrat Payne Calcium [Mass/Vol] 9.0 mg/dL Normal 8.5-10.1 [facility] Comment on above: Performed By: #### T 7, CMP, LIPID, TSH #### [facility] [address] [address] [address] Montserrat Payne Chloride [Moles/Vol] 106 mmol/L Normal 98-107 [facility] Comment on above: Performed By: #### T 7, CMP, LIPID, TSH #### [facility] [address] [address] [address] Montserrat Payne CO2 [Moles/Vol] 25.7 mmol/L Normal 21.0-32.0 [facility] Comment on above: Performed By: #### T 7, CMP, LIPID, TSH #### [facility] [address] [address] [address] Montserrat Payne Creatinine [Mass/Vol] 1.07 mg/dL Critically high 0.55-1.02 [facility] Comment on above: Performed By: #### T 7, CMP, LIPID, TSH #### [facility] [address] [address] [address] Montserrat Payne EGFR-AF KAZAKH >60 Normal >=60 [facility] Comment on above: Performed By: #### T 7, CMP, LIPID, TSH #### [facility] [address] [address] [address] Montserrat Payne EGFR-NON AF KAZAKH 53 mL/min/1.73m2 Critically low >=60 [facility] Comment on above: Performed By: #### T 7, CMP, LIPID, TSH #### [facility] [address] [address] [address] Montserrat Payne Globulin (S) [Mass/Vol] 3.2 g/dL Normal [facility] Comment on above: Performed By: #### T 7, CMP, LIPID, TSH #### [facility] [address] [address] [address] Montserrat Payne Glucose [Mass/Vol] 86 mg/dL Normal 74-106 [facility] Comment on above: Performed By: #### T 7, CMP, LIPID, TSH #### [facility] [address] [address] [address] Montserrat Payne Potassium [Moles/Vol] 4.0 mmol/L Normal 3.5-5.1 [facility] Comment on above: Performed By: #### T 7, CMP, LIPID, TSH #### [facility] [address] [address] [address] Montserrat Payne Protein [Mass/Vol] 6.9 g/dL Normal 6.4-8.2 [facility] Comment on above: Performed By: #### T 7, CMP, LIPID, TSH #### [facility] [address] [address] [address] Montserrat Payne Sodium [Moles/Vol] 141 mmol/L Normal 136-145 [facility] Comment on above: Performed By: #### T 7, CMP, LIPID, TSH #### [facility] [address] [address] [address] Montserrat Payne Urea nitrogen [Mass/Vol] 13.0 mg/dL Normal 7.0-18.0 [facility] Comment on above: Performed By: #### T 7, CMP, LIPID, TSH #### [facility] [address] [place] [address] Dr. Montserrat Payne Urea nitrogen/Creatinine [Mass ratio] 12.1 mg/mg Normal [facility] Comment on above: Performed By: #### T 7, CMP, LIPID, TSH #### [facility] [address] [address] [address] Montserrat Payne TSHon 03-08-2022 TSH 2.004 uIU/mL Normal 0.358-3.740 [facility] Comment on above: Performed By: #### T 7, CMP, LIPID, TSH ####[facility] [id number] [place], [place] [address]SyDonald Payne TSH RANGE SEE BELOW Normal [facility] Comment on above: Result Comment: <0.3 4 UIU/ml HYPERTHYROID 0.34-5.60 UIU/ml EUTHYROID >5.60 UIU/ml HYPOTHYROID Performed By: #### T 7, CMP, LIPID, TSH ####[facility] [id number] [id number][address] Montserrat Payne Covid-19 PCR (CVDTB)on 05-04 SARS-CoV-2 (COVID-19) RNA GLORIA+probe Ql (Unsp spec) Not detected Normal NOT DETECTED [facility] Comment on above: Result Comment: This test is not yet approved or cleared by the [place] FDA. When there are no FDA-approved or cleared tests available, and other criteria are met, FDA can make tests available under an emergency access mechanism called an Emergency Use Authorization (EUA). The EUA for this test is supported by the [place] of Health and Human Service's (HHS's) declaration that circumstances exist to justify the emergency use of in vitro diagnostics for the detection and/or diagnosis of the virus that causes COVID-19. This EUA will remain in effect (meaning this test can be used) for the duration of the COVID-19 declaration justifying emergency of IVDs, unless it is terminated or revoked by FDA (after which the test may no longer be used). When diagnostic testing is negative, the possibility of a false negative should be considered in the context of a patient's recent exposures and the presence of clinical signs and symptoms consistent with SARS-CoV-2. Performed By: #### C VDTBH, CVDAGS #### [facility] [address] [place], [place] [address] Dari Pagan SYMPTOMATIC COVID-19 ANTIGEN on 05-27-2021 EUA Statement SEE BELOW Normal [facility] Comment on above: Result Comment: This test has not been FDA cleared or approved, but has been authorized by the FDA under an Emergency Use Authorization (EUA) for use by authorized laboratories certified under CLIA that meet the requirements to perform moderate or high complexity testing. This test has been authorized only for the detection of proteins from SARS-CoV-2, not for any other viruses or pathogens. The emergency use of this test is authorized for the duration of the declaration that circumstances exist justifying the authorization of emergency use of in vitro diagnostic tests for detection and/or diagnosis of Covid-19 under section 564(b)(1) of the Act, 21 U.S.C. 360bbb-3(b)(1), unless the declaration is terminated or authorization is revoked sooner. Performed By: #### C SAMUEL, CVDAGS #### [facility] [address] [place] [address] Dari Pagan SARS-CoV-2 (COVID-19) RNA GLORIA+probe Ql (Unsp spec) Negative Normal NEGATIVE [facility] Comment on above: Result Comment: CONF IRMATION BY PCR PENDING PER CDC GUIDELINES/ SYMPTOMATIC PATIENT. Performed By: #### C SAMUEL, CVDAGS #### [facility] [address] [place] [address] Dari Pagan LIPID PROFILEon 05-19-2021 CHOL-HDL RATIO NORM SEE BELOW Normal [facility] Comment on above: Result Comment: 3.3 - 4.4 LOW RISK 4.4 - 7.1 AVERAGE RISK 7.1 - 11.0 MODERATE RISK >11.0 HIGH RISK Performed By: #### L JOHANNY, LIPID #### [facility] [address] [place] [address] Dari Pagan Cholesterol [Mass/Vol] 170 mg/dL Normal <=200 [facility] Comment on above: Performed By: #### L JOHANNY, LIPID #### [facility] [address] [place], [place] [id number] Dari Pagan Cholesterol in HDL [Mass/Vol] 61 mg/dL Normal [facility] Comment on above: Performed By: #### L JOHANNY, LIPID #### [facility] [address] [place], [place] [address] Dari Latasha Cholesterol in LDL [Mass/Vol] 69.2 mg/dL Normal [facility] Comment on above: Performed By: #### L IVKLEVER, LIPID #### [facility] [address] [place], [place] [address] Dari Latasha Cholesterol.total/Chol esterol in HDL [Mass ratio] 2.8 {ratio} Normal [facility] Comment on above: Performed By: #### L IVKLEVER, LIPID #### [facility] [address] [place], [place] [address] Dari Latasha HDL NORMAL > or = 60 mg/dl - LOW CARDIOVASCULAR RISK <40 mg/dl - HIGH CARDIOVASCULAR RISK Normal [facility] Comment on above: Performed By: #### L JOHANNY, LIPID #### [facility] [address] [place], [place] [address] Dari Latasha LDL CALC NORMAL SEE BELOW Normal [facility] Comment on above: Result Comment: <100 mg/dl OPTIMAL 100 - 129 mg/dl NEAR OR ABOVE OPTIMAL 130 - 159 mg/dl BORDERLINE HIGH 160 - 189 mg/dl HIGH >190 mg/dl VERY HIGH Performed By: #### L JOHANNY, LIPID #### [facility] [address] [place] [address] Dari Latasha Triglyceride [Mass/Vol] 199 mg/dL Critically high <=150 [facility] Comment on above: Performed By: #### L JOHANNY, LIPID #### [facility] [address] [place], [place] [address] Dari Latasha VLDL CALC 39.8 mg/dL Normal [facility] Comment on above: Performed By: #### L IVKLEVER, LIPID #### [facility] [address] [place], [place] [address] Dari Latasha LIVER PROFILEon 05-19-2021 Albumin [Mass/Vol] 4.1 g/dL Normal 3.5-5.0 [facility] Comment on above: Performed By: #### L IVKLEVER, LIPID #### [facility] [address] [place], [place] [address] Dari Latasha Albumin/Globulin [Mass ratio] 1.1 {ratio} Normal [facility] Comment on above: Performed By: #### L IVER, LIPID #### [facility] [address] [place], [place] [address] Dari Latasha ALP [Catalytic activity/Vol] 93 U/L Normal 38-126 [facility] Comment on above: Performed By: #### L IVER, LIPID #### [facility] [address] [id number] Dari Latasha ALT [Catalytic activity/Vol] 35 U/L Normal 9-52 [facility] Comment on above: Performed By: #### L IVER, LIPID #### [facility] [address] [id number] Dari Latasha AST [Catalytic activity/Vol] 29 U/L Normal 14-36 [facility] Comment on above: Performed By: #### L IVER, LIPID #### [facility] [address] [id number] Dari Latasha BILI, CONJUGATED 0.1 mg/dL Normal 0.0-0.3 [facility] Comment on above: Performed By: #### L IVKLEVER, LIPID #### [facility] [address] [id number] Dari Latasha Bilirubin [Mass/Vol] 0.5 mg/dL Normal 0.2-1.3 [facility] Comment on above: Performed By: #### L IVER, LIPID #### [facility] [address] [id number] Dari Latasha Globulin (S) [Mass/Vol] 3.6 g/dL Normal [facility] Comment on above: Performed By: #### L IVER, LIPID #### [facility] [address] [place], [place] [address] Dari Latasha Protein [Mass/Vol] 7.7 g/dL Normal 6.1-8.2 [facility] Comment on above: Performed By: #### L IVER, LIPID #### [facility] [address] [place], [place] [address] Dari Latasha Vital Signs Date Time Vital Sign Value Performing Clinician Christi lity 05-17-2023 13:07-0400 Blood Pressure Location Regulo NILL [facility] [place] 05-17-2023 13:07-0400 Diastolic blood pressure 86 mm[Hg] Regulo NILL [facility] [place] 05-17-2023 13:07-0400 Heart rate 72 /min Regulo NILL [facility] [place] 05-17-2023 13:07-0400 Respiratory rate 16 /min Regulo NILL [facility] [place] 05-17-2023 13:07-0400 Systolic blood pressure 126 mm[Hg] Regulo NILL [facility] [place] Encounters Encounter Date Encounter Type Care Provider Facility Start: 05-01-2024 End: 05-01-2024 ambulatory HANS TORREZ Not Available Start: 06-21-2023 End: 06-22-2023 ambulatory Regulo R NILL [facility] Start: 06-21-2023 End: 06-21-2023 Patient encounter procedure Regulo R NILL [facility] [place] Start: 06-08-2023 End: 06-09-2023 ambulatory Regulo R NILL Facility:[id number] Start: 05-17-2023 End: 05-18-2023 [facility] Start: 05-17-2023 End: 05-17-2023 Patient encounter procedure Regulo R NILL [facility] [place] Start: 03-31-2023 ambulatory Meseret Hubbard Facility:[facility] Start: 03-12-2022 Encounter for genera l adult medical examination without abnormal findings DR MESERET HUBBARD [facility] Start: 03-08-2022 End: 03-09-[address] MESERET HUBBARD Facility:[facility] Start: 03-08-2022 End: 03-09-2022 Encounter for general adult medical examination without abnormal findings DR MESERET HUBBARD Facility:[facility] Start: 05-27-2021 End: 05-28-[address] MESERET HUBBARD Facility:[facility] Start: 05-19-2021 End: 05-20-[address] MESERET HUBBARD Facility:[facility] Procedures Date Procedure Procedure Detail Performing Clinician Start: 06-08-2023 Colonoscopy Regulo NI LL Dilation and curettage Thomas nya NILL Repair of right ingu inal hernia Regulo NILL Comment on above: as a child Tonsillectomy and adenoidectomy Regulo NILL Vaginal hysterectomy Regulo NILL Immunizations Immunization Date Immunization Notes Care Provider Fa kathy 11-13-2021 SARS-CoV-2 mRNA (bovdyjiydec-ijcq-enfnk se) vaccine Regulo NILL [facility] [place] 05-29-2021 SARS-CoV-2 (COVID-19 ) mRNA BNT-162b2 vax Regulo INGRAML [facility] [place] 05-12-2021 SARS-CoV-2 (COVID-19 ) mRNA BNT-162b2 vax Regulo NILL [facility] [place] Payers Date Payer Category Payer Unknown [id number] 1965 Unknown [id number] [id number] [id number] 1965 Unknown [id number] 1967 Unknown [id number] 2.16.84 [id number] 1967 Unknown [id number] 2.16.8 [id number] 1967 Unknown [id number] 2.16.8 [id number] 1967 Unknown [id number] 2.16.8 [id number] 1967 Unknown [id number] 2.16.84 [id number] 1959 Unknown [id number] Social History Date Type Detail Facility Start: 05-17-2023 Tobacco smoking status Ex-smoker (fi nding) [facility] [place] Tobacco smoking status Never [facility] [place] Sex Assigned At Female [facility] Functional Status Date Assessment Result Facility 05-17-2023 Functional Status N/A [facility] [place] Clinical Note 05-17-2023 Note Date & Type Note Facility 05-17-2023 Note Chief Complaint consultation for screening colonoscopy HPI Staff 58 year old female presents on consultation from Dr. Hubbard for screening colonoscopy. Denies abdominal or rectal pain. No rectal bleeding or change in bowel habits. Denies nausea or vomiting. No unexplained weight loss. Never had colonoscopy in the past. Patient is adopted with little known about biological family. History of Present Illness 58 yo female with h/o hyperlipidemia, referred for colorectal screening; denies change in bms or blood in stools; no abdominal complaints; denies asa or NSAID use, no SBE prophylaxis; abdominal operations significant for vaginal hysterectomy and RIHR, no previous colonoscopy; no fmhx of GI malignancy or IBD; no tobacco use. Review of Systems PHQ Score Initial Depression Screen Score: 0 ROS - Provider Constitutional: no fever, no sweats, no weight loss. Eyes: no glasses, no blurred vision, no visual loss. ENMT: no dentures, no hoarseness, no swallowing difficulties, no hearing loss, no ear infection(s), no nose bleeds. Cardiovascular: normal blood pressure, no chest pain, regular heartbeat, no heart murmur. Respiratory: no shortness of breath, no cough, no asthma, no wheezing. Gastrointestinal: no nausea, no vomiting, no diarrhea, no constipation, no blood in stool, no change in bowel habits, no abdominal pain, no hepatitis. Genitourinary: no kidney stones, no urine infection, no dysuria. Musculoskeletal: no pain, no weakness. Skin: no changing moles, no rash, no skin lumps. Neurologic: no seizures, no epilepsy, no headache. Psychiatric: no emotional or psychiatric problem. Heme/Lymph: no bleeding problems, no anemia, no blood clots, no transfusions. Allergy/Immunologic: no swollen lymph nodes/glands, no IV drug abuse. Other: Additional ROS info: Except as noted in the above Review of Systems and in the History of Present Illness, all other systems have been reviewed and are negative or noncontributory. Physical Exam Vitals & Measurements HR: 72(Peripheral) RR: 16 BP: 126/86 HT: 64 in HT: 162.5 cm WT: 73.5 kg WT: 161.7 lb BMI: 27.83 HEENT: normal conjunctiva, sclera clear, no scleral icterus, EOM intact, PERRLA, oral mucosa moist without lesions. Neck: trachea midline, no mass, symmetric, no thyromegaly or nodules, no adenopathy Respiratory: lungs CTA, respirations non labored. Cardiovascular: regular rate and rhythm, no murmur, no pedal edema or varicosities. Gastrointestinal: soft, non distended, no tenderness, no masses, no palpable hernias, diastasis recti no, no hepatosplenomegaly; normal bs Lymphatic: no cervical adenopathy, nosupraclavicular adenopathy. Musculoskeletal: normal gait, digits and nails without infection, nodes, cyanosis, clubbing. Skin: no rashes, no lesions, no ulcers, no subcutaneous nodules, induration. Psychiatric/Neuro: oriented to time, place, person, judgement normal, affect appropriate for age, insight intact, no focal deficits. Tests: review of old records completed, Discussed surgical options, risks, and possible complications with patient. Assessment/Plan 1. Screening for malignant neoplasm of colon (Z12.11: Encounter for screening for malignant neoplasm of colon) plan colonoscopy under anesthesia, informed consent obtained. Follow-up No qualifying data available Problem List/Past Medical History Ongoing BMI 27.0-27.9,adult Hyperlipidemia Overweight Screening for malignant neoplasm of colon Historical No qualifying data Procedure/Surgical History Dilation and curettage, Repair of right inguinal hernia, Tonsillectomy and adenoidectomy, Vaginal hysterectomy. Medications Acidophilus Probiotic Blend, 1 cap(s), Oral, Daily simvastatin 20 mg Tab, 20 mg= 1 tab(s), Oral, qPM Allergies No Known Allergies No Known Medication Allergies Social History Alcohol Current, Beer, 1-2 times per week, 05/17/2023 Substance Abuse - Denies Substance Abuse, 05/17/2023 Tobacco Former smoker, quit more than 30 days ago Tobacco Use:. Never Smokeless Tobacco Use:. Cigarettes, 0.25 per day. Started age 22.0 Years. Stopped age 48 Years., 05/17/2023 Family History Primary malignant neoplasm of lung: Mother. Immunizations Vaccine Date Status SARSCoV2 mRNA(qyosgidah-cpmo-duvuxi) vac 11/13/2021 Recorded SARS-CoV-2 (COVID-19) mRNA BNT-162b2 vax 05/29/2021 Recorded SARS-CoV-2 (COVID-19) mRNA BNT-162b2 vax 05/12/2021 Recorded [facility] Comment on above: Result Comment: Elec tronically Signed By: LAQUITA MILLER, Regulo Devries\Date and Time Signed: 05/17/23 14:39 EDT Evaluation + Plan note Note Date & Type Note Facility Evaluation + Plan note No data available for this section [facility] [place] [facility] Discharge instructions Note Date & Type Note Facility Hospital Discharge instructions No data available for this section [facility] Progress note Note Date & Type Note Facility Progress note No data available for this section [facility] Summary Purpose Family History No Family History Records FoundNo Family History Records FoundNo Family History Records Found Advance Directives No Advanced Directives Records FoundNo Advanced Directives Records FoundNo Advanced Directives Records Found Additional Source Comments INFORMATION SOURCE (unrecogn ized section and content) DATE CREATED AUTHOR 03/12/2022 [facility] DATE CREATED AUTHOR AUTHOR'S ORGANIZ ATION 06/26/2023 [facility] DATE CREATED AUTHOR AUTHOR'S ORGANIZ ATION 05/03/2024 [facility] EPIC Patient Care team informatio n (unrecognized section and content) Personnel Name: Meseret Hubbard MD Address: Address: [address] [place] [address] Personnel Name: Meseret Hubbard MD Address: Address: [address] [place] [address] FOR RECORDS PERTAINING TO PATIENTS WHO ARE OR HAVE BEEN ENROLLED IN A CHEMICAL DEPENDENCY/SUBSTANCEABUSE PROGRAM, SOME INFORMATION MAY BE OMITTED. This clinical summary was aggregated from multiple sources. Caution should be exercised in using it in the provision of clinical care. This summary normalizes information from multiple sources, and as a consequence, information in this document may materially change the coding, format and clinical context of patient data. In addition, data may be omitted in some cases. CLINICAL DECISIONS SHOULD BE BASED ON THE PRIMARY CLINICAL RECORDS. [facility], [facility]. provides no warranty or guarantee of the accuracy or completeness of information in this document.
== END 2025-03-25 09:39 | disposition home or self-care (01) ==
LOC: MAMMO 09:40
PROVIDERS: PCP Family Medicine; Visit Provider Family Medicine
DX: Z12.31 Encounter for screening mammogram for malignant neoplasm of breast (principal)
CPT/HCPCS: 77063; 77067

== ENCOUNTER 2025-05-13 09:32 | Outpatient (OUT) | payer OTHER, SELFPAY ==
[2025-05-13 10:06] LABS: Hematocrit 42.5 % (36.0-48.0); Hemoglobin 14.5 g/dL (12.0-16.0); Immature Granulocytes Abs Auto 0.03 10^3/uL (0.00-0.03); Immature Granulocytes Pct Auto 0.6 % (0.0-0.5); Lymphocytes Absolute Auto 1.4 10^3/uL (1.2-3.8); Mean Corpuscular HGB Conc 34.1 g/dL (29.9-35.2); Mean Corpuscular Hemoglobin 31.7 pg (26.7-34.0); Mean Corpuscular Volume 93.0 fL (81.0-99.0); Platelet Count 317 10^3/uL (150-450); Red Blood Count 4.57 10^6/uL (4.20-5.40); White Blood Count 5.0 10^3/uL (4.0-11.0)
[2025-05-13 10:29] LABS: Alanine Aminotransferase 28 U/L (14-59); Albumin Globulin Ratio 1.2; Albumin Level 3.7 g/dL (3.4-5.0); Alkaline Phosphatase 95 U/L (46-116); Anion Gap 6.9; Aspartate Amino Transferase 14 U/L (15-37); Blood Urea Nitrogen 15.0 mg/dL (7.0-18.0); Calcium 9.3 mg/dL (8.5-10.1); Carbon Dioxide 29.0 mmol/L (21.0-32.0); Chloride 108 mmol/L (98-107); Cholesterol 167 mg/dL (<=200); Estimated GFR (African America >60 (>=60 mL/min/1.73m^2); Estimated GFR (Non-African Ame 56 (>=60 mL/min/1.73m^2); Globulin 3.2 g/dL; Glucose 86 mg/dL (74-106); HDL Cholesterol 55 mg/dL (40-60); Potassium 3.9 mmol/L (3.5-5.1); Sodium 140 mmol/L (136-145); Thyroid Stimulating Hormone 1.680 uIU/mL (0.358-3.740); Total Protein 6.9 g/dL (6.4-8.2); Triglycerides 181 mg/dL (<=150); VLDL CHOLESTEROL 36.2 mg/dL
[2025-05-13 10:55] LABS: Free T3 2.22 pg/mL (2.18-3.98)
== END 2025-05-13 09:33 | disposition home or self-care (01) ==
LOC: LAB 09:33
PROVIDERS: PCP Family Medicine; Visit Provider Family Medicine
DX: Z00.00 Encounter for general adult medical examination without abnormal findings (principal)
CPT/HCPCS: 36415; 80053; 80061; 83036; 84436; 84443; 84481; 85025